=== PATIENT | male | born 1990 | race American Indian/Alaskan Native ===

== ENCOUNTER 2019-10-22 18:15 | Emergency (ER) | payer OTHER ==
--- NOTE | 2019-10-22 20:25 | Event Note ---
ED Screening Note Date of service: 10/22/19 Time: 20:21 ED Screening Note: Patient is a 29 yo AA male who presents to the ED with c/o diffuse abdominal pain that radiates from epigastric area to the lower abdominal pain, lower back and testicular pain. Patient denies nausea, vomiting, diarrhea, fever, chills, hemoptysis. No headache, cough, chest pain or dyspnea, dysuria, hematuria or penile discharge. In triage, patient is alert and oriented x 3 and is in no acute distress but appears to be in significant pain. This initial assessment/diagnostic orders/clinical plan/treatment(s) is/are subject to change based on patients health status, clinical progression and re- assessment by fellow clinical providers in the ED. Further treatment and workup at subsequent clinical providers discretion. Patient/guardian urged not to elope from the ED as their condition may be serious if not clinically assessed and managed. Initial orders include: CBC, CMP, UA, LIPASE
[2019-10-22 21:05] LABS: Basophils # (Auto) 0.1 K/mm3 (0.0-0.1); Basophils % (Auto) 0.8 % (0.0-1.8); Eosinophils # (Auto) 0.2 K/mm3 (0.0-0.4); Eosinophils % (Auto) 3.1 % (0.0-4.3); Hematocrit 44.5 % (35.5-45.6); Lymphocytes # (Auto) 2.8 K/mm3 (1.2-5.4); Mean Corpuscular HGB Conc 34 % (32-34); Mean Corpuscular Volume 82 fl (84-94); Monocytes # (Auto) 0.6 K/mm3 (0.0-0.8); Monocytes % (Auto) 8.1 % (0.0-7.3); Platelet Count 213 K/mm3 (140-440); Red Cell Distribution Width 13.3 % (13.2-15.2)
[2019-10-22 21:27] LABS: Alanine Aminotransferase 52 units/L (7-56); Albumin 4.3 g/dL (3.9-5); BUN/Creatinine Ratio 9; Blood Urea Nitrogen 9 mg/dL (9-20); Calcium 9.2 mg/dL (8.4-10.2); Hemolysis Index 16
[2019-10-22 21:51] LABS: Bilirubin,Urine NEG (Negative); Blood,Urine NEG (Negative); Color,Urine Yellow (Yellow); Mucus,Urine 1+ /HPF; Protein,Urine <15 mg/dL mg/dL (Negative)
--- NOTE | 2019-10-22 23:23 | Emergency Department Report ---
HPI - General Chief Complaint: Abdominal Pain Time Seen by Provider: 10/22/19 23:07 - HPI HPI: Room 34 The pt is a 29 y/o M p/w a cc of abd pain and testicle pain. The pt states he's had pain from the bottom of his chest through his abdomenx 3 days. The patient states he began having testicular pain yd. When asked which tresticle hurts the pt pt initially states he isnt sure but eventually answers he thinks the right hurts greater than the left. Pt denies dysuria, hematuria, penile d/c or fever. Pt denies n/v/d. ED Past Medical Hx - Past Medical History Previous Medical History?: No - Surgical History Past Surgical History?: No - Family History Family history: no significant - Social History Smoking Status: Former Smoker (none x ~1 week) Substance Use Type: None (denies illicit drug use) - Medications Home Medications: Home Medications Medication Instructions Recorded Confirmed Last Taken Type Famotidine [Pepcid] 20 mg PO BID #20 tablet 10/23/19 Unknown Rx Ondansetron [Zofran ODT TAB] 8 mg PO Q8HR #20 tab.rapdis 10/23/19 Unknown Rx traMADoL [Ultram] 50 mg PO Q6HR PRN #14 tablet 10/23/19 Unknown Rx ED Review of Systems ROS: Stated complaint: ABD PAIN/KNEE/CHEST PAIN Other details as noted in HPI Constitutional: denies: fever Eyes: denies: eye pain ENT: denies: throat pain Respiratory: no symptoms reported Cardiovascular: denies: chest pain Endocrine: no symptoms reported Gastrointestinal: abdominal pain. denies: nausea, vomiting, diarrhea Genitourinary: testicular pain. denies: dysuria, hematuria, discharge Musculoskeletal: denies: back pain Neurological: denies: headache Physical Exam - Physical Exam Vital Signs: Vital Signs 10/22/19 10/22/19 18:29 20:23 Temperature 97.9 F Pulse Rate 89 Respiratory 18 Rate Blood Pressure 139/61 O2 Sat by Pulse 95 Oximetry Physical Exam: GEN: WD WN M sitting on stretcher in NAD HEENT: NCAT, EOMI NECK:Trachea midline, no stridor CV: rrr no m/r/g Pulm: CTAB. no resp distress ABD: s/nd +BS. There is ttp of the DEE, RUQ and RLQ. Neuro: GCS 15 SKIN: no diaphoresis MS: no evidence of acute injury ED Course Vital Signs 10/22/19 10/22/19 18:29 20:23 Temperature 97.9 F Pulse Rate 89 Respiratory 18 Rate Blood Pressure 139/61 O2 Sat by Pulse 95 Oximetry ED Medical Decision Making - Lab Data Result diagrams: 10/22/19 20:36 10/22/19 20:36 Laboratory Tests 10/22/19 10/22/19 10/22/19 20:36 20:36 Unknown WBC 7.5 RBC 5.40 H Hgb 15.0 Hct 44.5 MCV 82 L MCH 28 MCHC 34 RDW 13.3 Plt Count 213 Lymph % (Auto) 37.0 H [place] % (Auto) 8.1 H Eos % (Auto) 3.1 Baso % (Auto) 0.8 Lymph # 2.8 [place] # 0.6 Eos # 0.2 Baso # 0.1 Seg Neutrophils % 51.0 Seg Neutrophils # 3.8 Sodium 141 Potassium 4.0 Chloride 104.1 Carbon Dioxide 23 Anion Gap 18 BUN 9 Creatinine 1.0 Estimated GFR > 60 BUN/Creatinine Ratio 9 Glucose 99 Calcium 9.2 Total Bilirubin 0.20 AST 29 ALT 52 Alkaline Phosphatase 86 Total Protein 7.9 Albumin 4.3 Albumin/Globulin Ratio 1.2 Lipase 34 Urine Color Yellow Urine Turbidity Clear Urine pH 6.0 Ur Specific [place]pine 1.027 Urine Protein <15 mg/dl Urine Glucose (UA) Neg Urine Ketones Neg Urine Blood Neg Urine Nitrite Neg Urine Bilirubin Neg Urine Urobilinogen 2.0 Ur Leukocyte Esterase Neg Urine WBC (Auto) 1.0 Urine RBC (Auto) 1.0 Urine Mucus 1+ - Radiology Data Radiology results: report reviewed (CT abd/pel, testicular u/s), image reviewed (ct abd/pel, testicular u/s) [facility] [address] [place] [address] Cat Scan Report Signed Patient: MEAGAN GOMES MR#: [id number] : 1990 Acct:[id number] Age/Sex: 29 / M ADM Date: 10/22/19 Loc: ED Attending Dr: Ordering Physician: SULEMA BHATTI MD Date of Service: 10/22/19 Procedure(s): CT abdomen pelvis w con Accession Number(s): [id number] cc: SULEMA BHATTI MD CT ABDOMEN AND PELVIS WITH CONTRAST INDICATION: Right abdominal and epigastric pain. COMPARISON: No relevant prior imaging study available. TECHNIQUE: Axial, coronal and sagittal CT imaging of the abdomen and pelvis was performed after injection of 100 cc Omnipaque [address] scans at this location are performed using CT dose reduction for ALARA by means of automated exposure control. FINDINGS: LOWER CHEST: No significant abnormality. LIVER: No significant abnormality. BILIARY: No significant abnormality. PANCREAS: No significant abnormality. SPLEEN: No significant abnormality. ADRENALS: No significant abnormality. KIDNEYS AND URETERS: No significant abnormality. GI TRACT: No significant abnormality of the stomach, small bowel or colon. The appendix is not well seen. PERITONEUM: No free fluid. No free air. No fluid collection. LYMPH NODES: No significant adenopathy. VASCULATURE: No significant abnormality. URINARY BLADDER: No significant abnormality. REPRODUCTIVE ORGANS: No significant abnormality. ADDITIONAL FINDINGS: None. SKELETAL SYSTEM: No significant abnormality. IMPRESSION: No acute abnormality of the abdomen or pelvis. Signer Name: Driss Murguia MD Signed: 10/23/2019 12:26 AM Workstation Name: [email or web address] Transcribed By: MN Dictated By: Driss Murguia MD Electronically Authenticated By: Driss Murguia MD Signed Date/Time: 10/23/1925 DD/ TD/TT: [facility] [address] [place] [address] Ultrasound Report Signed Patient: MEAGAN GOMES MR#: [id number] : 1990 Acct:[id number] Age/Sex: 29 / M ADM Date: 10/22/19 Loc: ED Attending Dr: Ordering Physician: SULEMA BHATTI MD Date of Service: 10/22/19 Procedure(s): US testicular doppler comp Accession Number(s): [id number] cc: SULEMA BHATTI MD ULTRASOUND SCROTUM INDICATION: bilateral testicular pain. COMPARISON None available. FINDINGS: RIGHT TESTICLE: Measures 5.0 x 2.2 x 3.1 cm with expected color flow and appearance. RIGHT EPIDIDYMIS: No significant abnormality. LEFT TESTICLE: Measures 4.8 x 1.9 x 3.3 cm with expected color flow and appearance. LEFT EPIDIDYMIS: No significant abnormality. HYDROCELE: None seen. VARICOCELE: None seen. ADDITIONAL FINDINGS: None. IMPRESSION: No significant sonographic abnormality of the scrotum/testes. Signer Name: Driss Murguia MD Signed: 10/23/2019 12:08 AM Workstation Name: [id number] Transcribed By: MN Dictated By: Driss Murguia MD Electronically Authenticated By: Driss Murguia MD Signed Date/Time: 10/23/197 DD/ TD/TT: - Differential Diagnosis gastritis, testicular torsion, uti Critical care attestation.: If time is entered above; I have spent that time in minutes in the direct care of this critically ill patient, excluding procedure time. 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: Acute abdominal pain, Testicular pain Disposition: TO HOME OR SELFCARE Is pt being admited?: No Does the pt Need Aspirin: No Condition: Stable Instructions: Abdominal Pain (ED), Testicle Pain (ED) Prescriptions: Famotidine [Pepcid] 20 mg PO BID #20 tablet traMADoL [Ultram] 50 mg PO Q6HR PRN #14 tablet PRN Reason: Pain Ondansetron [Zofran ODT TAB] 8 mg PO Q8HR #20 tab.rapdis Referrals: [facility] [Outside] - 3-5 Days PAMELA HERNANDEZ MD [Staff Physician] - 3-5 Days (Dr Hernandez is a acupressure therapist. Please follow up with him for further evaluation) JOSE ALBERTO PINK MD [Staff Physician] - [facility] (Dr Pink is a urologist. Please follow up with him for further evaluation of your testicular pain) Time of Disposition: 00:50
--- NOTE | 2019-10-23 00:12 | Ultrasound Report ---
ULTRASOUND SCROTUM INDICATION: bilateral testicular pain. COMPARISON None available. FINDINGS: RIGHT TESTICLE: Measures 5.0 x 2.2 x 3.1 cm with expected color flow and appearance. RIGHT EPIDIDYMIS: No significant abnormality. LEFT TESTICLE: Measures 4.8 x 1.9 x 3.3 cm with expected color flow and appearance. LEFT EPIDIDYMIS: No significant abnormality. HYDROCELE: None seen. VARICOCELE: None seen. ADDITIONAL FINDINGS: None. IMPRESSION: No significant sonographic abnormality of the scrotum/testes. Signer Name: Driss Murguia MD Signed: 10/23/2019 12:08 AM Workstation Name: [id number]
--- NOTE | 2019-10-23 00:30 | Cat Scan Report ---
CT ABDOMEN AND PELVIS WITH CONTRAST INDICATION: Right abdominal and epigastric pain. COMPARISON: No relevant prior imaging study available. TECHNIQUE: Axial, coronal and sagittal CT imaging of the abdomen and pelvis was performed after inje ction of 100 cc Omnipaque [address] scans at this location are performed using CT dose re duction for ALARA by means of automated exposure control. FINDINGS: LOWER CHEST: No significant abnormality. LIVER: No significant abnormality. BILIARY: No significant abnormality. PANCREAS: No significant abnormality. SPLEEN: No significant abnormality. ADRENALS: No significant abnormality. KIDNEYS AND URETERS: No significant abnormality. GI TRACT: No significant abnormality of the stomach, small bowel or colon. The appendix is not well seen. PERITONEUM: No free fluid. No free air. No fluid collection. LYMPH NODES: No significant adenopathy. VASCULATURE: No significant abnormality. URINARY BLADDER: No significant abnormality. REPRODUCTIVE ORGANS: No significant abnormality. ADDITIONAL FINDINGS: None. SKELETAL SYSTEM: No significant abnormality. IMPRESSION: No acute abnormality of the abdomen or pelvis. Signer Name: Driss Murguia MD Signed: 10/23/2019 12:26 AM Workstation Name: [id number]
[2019-10-23 02:02] VITALS: BP 132/84
== END 2019-10-23 01:05 | disposition home or self-care (01) ==
LOC: ED 18:15
DX: R10.9 Unspecified abdominal pain (principal); N50.811 Right testicular pain; N50.812 Left testicular pain; Z87.891 Personal history of nicotine dependence; Z79.899 Other long term (current) drug therapy
CPT/HCPCS: 36415; 74177; 80053; 81001; 83690; 85025; 93975; 99284; Q9967

== ENCOUNTER 2020-11-10 14:01 | Emergency (ER) | payer OTHER ==
[2020-11-10] MEDS ORDERED: IBUPROFEN 800 MG TAB PO ONE (14:31)
[2020-11-10] MEDS ORDERED: HYDROcodone/ACETAMINOPHEN 5-325 MG TAB PO ONE (14:31)
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
[2020-11-10 17:16] VITALS: BP 135/68
== END 2020-11-10 17:26 | disposition home or self-care (01) ==
LOC: EDUNIT# → ED 14:01
DX: S39.012A Strain of muscle, fascia and tendon of lower back, initial encounter (principal); S16.1XXA Strain of muscle, fascia and tendon at neck level, initial encounter; Z79.899 Other long term (current) drug therapy; V49.49XA Driver injured in collision with other motor vehicles in traffic accident, initial encounter; Y93.89 Activity, other specified; Y92.488 Other paved roadways as the place of occurrence of the external cause; Y99.8 Other external cause status
CPT/HCPCS: 72040; 72100